=== PATIENT | female | born 1955 | race Caucasian/White ===

== ENCOUNTER 2017-05-10 12:07 | Inpatient (IN) | payer MEDICAID, OTHER ==
[~2017-05-10] VITALS: Ht 152.4 cm; Wt 48.6 kg
[2017-05-10] MEDS ORDERED: LORazepam 2 MG/ML VIAL IM ONE (13:00)
[2017-05-10 13:42] LABS: BASOPHILS % (AUTO) 0.6 % (0.0-2.0); EOSINOPHILS % (AUTO) 0.5 % (1.0-6.0); HEMOGLOBIN 12.9 g/dL (12.0-16.0); LYMPHOCYTES # (AUTO) 1.4 K/uL (1.0-4.8); LYMPHOCYTES % (AUTO) 19.6 % (22.0-44.0); MEAN CORPUSCULAR HEMOGLOBIN 30.6 pg (26.0-34.0); MEAN CORPUSCULAR VOLUME 88 fL (80-100); MONOCYTES # (AUTO) 0.4 K/uL (0.1-1.0); MONOCYTES % (AUTO) 5.4 % (2.0-9.0); NEUTROPHILS # (AUTO) 5.2 K/uL (1.8-7.7); NEUTROPHILS % (AUTO) 73.9 % (40.0-70.0); PLATELET COUNT (AUTO) 287 K/uL (150-450); RED BLOOD CELL COUNT(AUTO) 4.23 MIL/uL (4.00-5.20); RED CELL DISTRIBUTION WIDTH 13.3 % (11.5-14.5)
[2017-05-10 14:03] LABS: ANION GAP 12 mmol/L (8-16); CALCIUM, TOTAL 9.3 mg/dL (8.8-10.5); CARBON DIOXIDE 24 mmol/L (22-29); CHLORIDE 100 mmol/L (98-107); CREATININE 0.84 mg/dL (0.60-1.30); GLOMERULAR FILTR. RATE CALC > 60 mL/min (>60); GLUCOSE,RANDOM 145 mg/dL (70-110); POTASSIUM 3.8 mmol/L (3.5-5.1); SODIUM SERUM 136 mmol/L (136-145); UREA NITROGEN, BLOOD 18 mg/dL (7-18)
[2017-05-10 14:09] LABS: ALANINE AMINOTRANSFERASE 19 U/L (12-78); ALBUMIN 3.9 g/dL (3.4-5.0); ALKALINE PHOSPHATASE 215 U/L (46-116); ASPARTATE AMINOTRANSFERASE 25 U/L (15-37); BILIRUBIN,TOTAL 0.4 mg/dL (0.1-1.0); TOTAL PROTEIN, SERUM 9.4 g/dL (6.4-8.2)
[2017-05-10 14:27] LABS: APPEARANCE,URINE CLOUDY (CLEAR); BILIRUBIN,URINE NEGATIVE (NEGATIVE); GLUCOSE, URINE (UA) NEGATIVE (NEGATIVE); KETONES,URINE TRACE mg/dL (NEGATIVE); LEUKOCYTE ESTERASE ,URINE NEGATIVE (NEGATIVE); NITRATE,URINE NEGATIVE (NEGATIVE); OCCULT BLOOD,URINE NEGATIVE (NEGATIVE); PROTEIN,URINE POS 1+ (NEGATIVE); UROBILINOGEN,URINE 0.2 mg/dL (<=1.0)
[2017-05-10] MEDS ORDERED: SODIUM CHLORIDE 0.9% 1,000 ML IV ONE (14:30)
[2017-05-10] MEDS ORDERED: LORazepam 2 MG/ML VIAL IVP ONE (14:30)
[2017-05-10 14:47] LABS: RBC,URINE None Seen /HPF (0-2)
[2017-05-10 14:48] LABS: BACTERIA,URINE Few /HPF (None Seen); SQUAMOUS EPITHELIAL CELL,UR Moderate /LPF (None Seen); WBC,URINE 0-2 /HPF (0-5)
[2017-05-10 16:06] LABS: AMPHET/METH SCREEN,URINE NEGATIVE (NEGATIVE); BARBITURATE SCREEN, URINE NEGATIVE (NEGATIVE); BENZODIAZEPINES SCREEN,URINE POSITIVE (NEGATIVE); CANNABINOID SCREEN,URINE NEGATIVE (NEGATIVE); COCAINE SCREEN,URINE NEGATIVE (NEGATIVE); METHADONE SCREEN, URINE NEGATIVE (NEGATIVE); OPIATE SCREEN,URINE NEGATIVE (NEGATIVE); PHENCYCLIDINE SCREEN,URINE NEGATIVE (NEGATIVE)
[2017-05-10] MEDS ORDERED: LORazepam 1 MG TABLET PO PRN (18:45)
[2017-05-10] MEDS ORDERED: HALOPERIDOL 5 MG TABLET PO PRN (18:45)
[2017-05-10 19:09] LABS: CHOL/HDL RATIO 3.8 (3.9-5.7); CHOLESTEROL 214 mg/dL (131-200); HDL CHOLESTEROL 56 mg/dL (40-60); LDL CHOL (CALC.) 140 mg/dL (0-130); TRIGLYCERIDES 90 mg/dL (15-150)
[2017-05-10] MEDS ORDERED: ZOLPIDEM TARTRATE 10 MG TABLET PO PRN (19:15)
[2017-05-10 21:00] VITALS: BP 145/93
[2017-05-10 21:40] VITALS: BP 141/91
[2017-05-10] MEDS: LORazepam 2 MG TABLET PO PRN (23:46)
[2017-05-11] VITALS: BP 122/80
[2017-05-11] MEDS ORDERED: MAGNESIUM HYDROXIDE SUSPENSION 30 ML UDCUP PO PRN (08:15)
[2017-05-11] MEDS ORDERED: PETROLATUM,WHITE 71 GM JELLY TP PRN (08:15)
[2017-05-11] MEDS ORDERED: BENZOCAINE/MENTHOL LOZENGE [8 LOZENGES/PACKET] MM PRN (08:15)
[2017-05-11] MEDS ORDERED: ALBUTEROL SULFATE HFA 90 MCG/PUFF 8 GM INHALER IH PRN (08:15)
[2017-05-11] MEDS ORDERED: ONDANSETRON HCL 4 MG TABLET PO PRN (08:15)
[2017-05-11] MEDS ORDERED: MAG HYDROX/AL HYDROX/SIMETH ES 30 ML SUSPENSION UDCUP PO PRN (08:15)
[2017-05-11] MEDS ORDERED: LOPERAMIDE HCL 2 MG CAPSULE PO PRN (08:15)
[2017-05-11] MEDS ORDERED: ACETAMINOPHEN 325 MG TABLET PO PRN (08:15)
[2017-05-11] MEDS ORDERED: CloNIDine HCL 0.1 MG TABLET PO PRN (08:15)
[2017-05-11] MEDS ORDERED: BACITRACIN 28.4 GM OINTMENT TP PRN (08:15)
[2017-05-11] MEDS: OMEPRAZOLE 20 MG CAPSULE PO SCH (08:39)
[2017-05-11] MEDS: DOCUSATE SODIUM 100 MG CAPSULE PO SCH (08:39)
[2017-05-11 08:40] VITALS: BP 139/76
[2017-05-11] MEDS: IBUPROFEN 600 MG TABLET PO PRN (08:40)
[2017-05-11 08:51] VITALS: BP 139/76
[2017-05-11] MEDS: DULoxetine HCL 30 MG CAPSULE PO SCH (11:51)
[2017-05-11] MEDS: LORazepam 2 MG TABLET PO PRN (14:06)
[2017-05-11 20:22] VITALS: BP 124/72
[2017-05-11] MEDS: MIRTAZAPINE 15 MG TABLET PO SCH (20:56)
[2017-05-12] MEDS ORDERED: INFLUENZA VIRUS VACCINE QVS 2017-18 (3YR+)/PF 60 MCG/0.5 ML SYRINGE IM ONE (00:30)
[2017-05-12] MEDS: LORazepam 2 MG TABLET PO PRN ×2 (05:29→15:16)
[2017-05-12 07:05] VITALS: BP 131/78
[2017-05-12] MEDS: IBUPROFEN 600 MG TABLET PO PRN ×2 (07:08→17:21)
[2017-05-12 07:12] LABS: HEMOGLOBIN A1C 5.7 % (4.5-6.2)
[2017-05-12 07:21] LABS: THYROID STIMULATING HORMONE 3.42 uIU/mL (0.36-3.74)
[2017-05-12 08:15] VITALS: BP 136/89
[2017-05-12] MEDS: DULoxetine HCL 30 MG CAPSULE PO SCH (08:22)
[2017-05-12] MEDS: DOCUSATE SODIUM 100 MG CAPSULE PO SCH (08:22)
[2017-05-12] MEDS: OMEPRAZOLE 20 MG CAPSULE PO SCH (08:23)
[2017-05-12] MEDS: LISINOPRIL 10 MG TABLET PO SCH (08:29)
[2017-05-12] MEDS: NICOTINE 21 MG/24 HOUR PATCH TD SCH (08:29)
[2017-05-12 16:00] VITALS: BP 133/77
[2017-05-12] MEDS: MIRTAZAPINE 15 MG TABLET PO SCH (20:32)
[2017-05-13 06:30] VITALS: BP 127/77
[2017-05-13] MEDS: IBUPROFEN 600 MG TABLET PO PRN (06:39)
[2017-05-13 08:26] VITALS: BP 126/77
[2017-05-13] MEDS: DULoxetine HCL 30 MG CAPSULE PO SCH (09:14)
[2017-05-13] MEDS: LISINOPRIL 10 MG TABLET PO SCH (09:15)
[2017-05-13] MEDS: DOCUSATE SODIUM 100 MG CAPSULE PO SCH (09:16)
[2017-05-13] MEDS: OMEPRAZOLE 20 MG CAPSULE PO SCH (09:16)
[2017-05-13] MEDS: NICOTINE 21 MG/24 HOUR PATCH TD SCH (09:17)
[2017-05-13] MEDS ORDERED: DULO30CA2 PO (15:25)
[2017-05-13] MEDS ORDERED: MIRT15 PO (15:25)
[2017-05-13] MEDS ORDERED: DSS100 PO (16:10)
[2017-05-13] MEDS ORDERED: LISI-661 PO (16:11)
[2017-05-13] MEDS ORDERED: OMEP20 PO (16:14)
[2017-05-13 18:00] VITALS: BP 124/78
== END 2017-05-13 19:25 | disposition home or self-care (01) | DRG 751 ==
LOC: EMS 12:10 → EDBD 12:10 → 3EC 19:30
DX: F33.3 Major depressive disorder, recurrent, severe with psychotic symptoms (principal); Z78.1 Physical restraint status; I10 Essential (primary) hypertension; E78.5 Hyperlipidemia, unspecified; F17.200 Nicotine dependence, unspecified, uncomplicated; F41.9 Anxiety disorder, unspecified; G47.00 Insomnia, unspecified; G89.29 Other chronic pain; K21.9 Gastro-esophageal reflux disease without esophagitis; M45.9 Ankylosing spondylitis of unspecified sites in spine; M54.9 Dorsalgia, unspecified; Z88.2 Allergy status to sulfonamides; Z91.048 Other nonmedicinal substance allergy status; Z79.899 Other long term (current) drug therapy
CPT/HCPCS: 80074; 82306; 83036; 84443; 93005; 96361; 96372; 96374; 99285; G0480; J2060; J7030

== ENCOUNTER 2019-01-16 13:41 | Emergency (ER) | payer MEDICAID, OTHER ==
[~2019-01-16] VITALS: Ht 162.6 cm; Wt 54.5 kg
[~2019-01-16 13:41] MED LIST: COMP10 PO; DSS100 PO; DULO30CA2 PO; LISI-661 PO; MIRT15 PO; OMEP20 PO
[2019-01-16] MEDS ORDERED: ONDANSETRON HCL 4 MG/2 ML VIAL IVP ONE (14:30)
[2019-01-16] MEDS ORDERED: SODIUM CHLORIDE 0.9% 1,000 ML IV ONE (14:30)
[2019-01-16 14:51] LABS: BASOPHILS % (AUTO) 0.7 % (0.0-2.0); EOSINOPHILS % (AUTO) 1.4 % (1.0-6.0); HEMATOCRIT 43.5 % (36-46); HEMOGLOBIN 14.6 g/dL (12.0-16.0); LYMPHOCYTES # (AUTO) 2.4 K/uL (1.0-4.8); LYMPHOCYTES % (AUTO) 28.7 % (22.0-44.0); MEAN CORPUSCULAR HEMOGLOBIN 29.1 pg (26.0-34.0); MEAN CORPUSCULAR HGB CONC 33.7 G/dL (31.0-37.0); MEAN CORPUSCULAR VOLUME 86 fL (80-100); MONOCYTES # (AUTO) 0.4 K/uL (0.1-1.0); MONOCYTES % (AUTO) 4.7 % (2.0-9.0); NEUTROPHILS # (AUTO) 5.4 K/uL (1.8-7.7); NEUTROPHILS % (AUTO) 64.5 % (40.0-70.0); PLATELET COUNT (AUTO) 280 K/uL (150-450); RED BLOOD CELL COUNT(AUTO) 5.03 MIL/uL (4.00-5.20); RED CELL DISTRIBUTION WIDTH 13.9 % (11.5-14.5)
[2019-01-16 15:25] LABS: ANION GAP 6 mmol/L (8-16); CALCIUM, TOTAL 9.3 mg/dL (8.8-10.5); CARBON DIOXIDE 30 mmol/L (22-29); CHLORIDE 99 mmol/L (98-107); CREATININE 0.57 mg/dL (0.60-1.30); GLOMERULAR FILTR. RATE CALC > 60 mL/min (>60); GLUCOSE,RANDOM 126 mg/dL (70-110); POTASSIUM 3.9 mmol/L (3.5-5.1); SODIUM SERUM 135 mmol/L (136-145); UREA NITROGEN, BLOOD 9 mg/dL (7-18)
[2019-01-16 15:30] LABS: ALANINE AMINOTRANSFERASE 25 U/L (12-78); ALBUMIN 3.7 g/dL (3.4-5.0); ALKALINE PHOSPHATASE 184 U/L (46-116); ASPARTATE AMINOTRANSFERASE 24 U/L (15-37); BILIRUBIN,TOTAL 0.6 mg/dL (0.1-1.0); LIPASE 54 U/L (73-393); TOTAL PROTEIN, SERUM 9.1 g/dL (6.4-8.2)
[2019-01-16 16:39] LABS: APPEARANCE,URINE CLEAR (CLEAR); BILIRUBIN,URINE NEGATIVE (NEGATIVE); GLUCOSE, URINE (UA) NEGATIVE (NEGATIVE); KETONES,URINE TRACE mg/dL (NEGATIVE); LEUKOCYTE ESTERASE ,URINE MODERATE (NEGATIVE); NITRATE,URINE NEGATIVE (NEGATIVE); OCCULT BLOOD,URINE NEGATIVE (NEGATIVE); PH,URINE 7.5 (5.0-8.0); PROTEIN,URINE NEGATIVE (NEGATIVE); UROBILINOGEN,URINE 0.2 mg/dL (<=1.0)
[2019-01-16 16:51] LABS: BACTERIA,URINE Few /HPF (None Seen); RBC,URINE 0-2 /HPF (0-2); SQUAMOUS EPITHELIAL CELL,UR Few /LPF (None Seen); WBC,URINE 26-50 /HPF (0-5)
[2019-01-16] MEDS ORDERED: METOCLOPRAMIDE HCL 5 MG/ML 2 ML VIAL IVP ONE (17:15)
[2019-01-16] MEDS ORDERED: DOCU-275 PO (17:21)
[2019-01-16 18:25] VITALS: BP 161/91
== END 2019-01-16 18:40 | disposition home or self-care (01) ==
LOC: EMS 13:41
DX: N39.0 Urinary tract infection, site not specified (principal); R11.2 Nausea with vomiting, unspecified; I10 Essential (primary) hypertension; F20.9 Schizophrenia, unspecified; F17.200 Nicotine dependence, unspecified, uncomplicated; Z88.1 Allergy status to other antibiotic agents; Z91.018 Allergy to other foods; Z79.899 Other long term (current) drug therapy
CPT/HCPCS: 36415; 80053; 81001; 83690; 85025; 87086; 93005; 96361; 96374; 96375; 99285; J2405; J2765; J7030

== ENCOUNTER 2019-01-21 10:52 | Inpatient (IN) | payer OTHER ==
[~2019-01-21] VITALS: Ht 162.6 cm; Wt 54.5 kg
[2019-01-21] MEDS: BARIUM SULFATE 0.1% SUSPENSION 450 ML BOTTLE PO ONE ×2 (02:42→14:42)
[~2019-01-21 10:52] MED LIST changes: +DOCU-275 PO; -DSS100 PO
[2019-01-21] MEDS ORDERED: METO-558 PO (11:04)
[2019-01-21] MEDS ORDERED: LEVO100 PO (11:04)
[2019-01-21] MEDS ORDERED: MORPHINE SULFATE 2 MG/ML SYRINGE IVP ONE (12:00)
[2019-01-21] MEDS ORDERED: ONDANSETRON HCL 4 MG/2 ML VIAL IVP ONE (12:00)
[2019-01-21] MEDS ORDERED: SODIUM CHLORIDE 0.9% 1,000 ML IV ONE ×3 (12:00→18:00)
[2019-01-21] MEDS ORDERED: IOVERSOL 350 MG/ML 100 ML VIAL ONE (13:05)
[2019-01-21] MEDS ORDERED: SODIUM CHLORIDE 0.9% 100 ML ONE (13:05)
[2019-01-21 13:36] LABS: BASOPHILS % (AUTO) 0.7 % (0.0-2.0); EOSINOPHILS % (AUTO) 1.6 % (1.0-6.0); HEMATOCRIT 44.6 % (36-46); HEMOGLOBIN 14.9 g/dL (12.0-16.0); LYMPHOCYTES # (AUTO) 4.1 K/uL (1.0-4.8); LYMPHOCYTES % (AUTO) 37.5 % (22.0-44.0); MEAN CORPUSCULAR HEMOGLOBIN 29.2 pg (26.0-34.0); MEAN CORPUSCULAR HGB CONC 33.3 G/dL (31.0-37.0); MEAN CORPUSCULAR VOLUME 88 fL (80-100); MONOCYTES # (AUTO) 0.7 K/uL (0.1-1.0); NEUTROPHILS # (AUTO) 5.9 K/uL (1.8-7.7); NEUTROPHILS % (AUTO) 54.2 % (40.0-70.0); PLATELET COUNT (AUTO) 277 K/uL (150-450); RED BLOOD CELL COUNT(AUTO) 5.09 MIL/uL (4.00-5.20); RED CELL DISTRIBUTION WIDTH 13.7 % (11.5-14.5)
[2019-01-21 13:51] LABS: ANION GAP 6 mmol/L (8-16); CALCIUM, TOTAL 9.4 mg/dL (8.8-10.5); CARBON DIOXIDE 28 mmol/L (22-29); CHLORIDE 99 mmol/L (98-107); CREATININE 0.62 mg/dL (0.60-1.30); GLOMERULAR FILTR. RATE CALC > 60 mL/min (>60); GLUCOSE,RANDOM 102 mg/dL (70-110); POTASSIUM 4.1 mmol/L (3.5-5.1); SODIUM SERUM 133 mmol/L (136-145); UREA NITROGEN, BLOOD 7 mg/dL (7-18)
[2019-01-21 13:56] LABS: ALANINE AMINOTRANSFERASE 25 U/L (12-78); ALBUMIN 3.9 g/dL (3.4-5.0); ALKALINE PHOSPHATASE 189 U/L (46-116); ASPARTATE AMINOTRANSFERASE 32 U/L (15-37); BILIRUBIN,TOTAL 0.4 mg/dL (0.1-1.0); LIPASE 73 U/L (73-393); TOTAL PROTEIN, SERUM 8.8 g/dL (6.4-8.2)
[2019-01-21] MEDS ORDERED: METOCLOPRAMIDE HCL 5 MG/ML 2 ML VIAL IVP ONE (15:00)
[2019-01-21] MEDS ORDERED: ONDANSETRON HCL 4 MG/2 ML VIAL IVP PRN (17:00)
[2019-01-21] MEDS ORDERED: ACETAMINOPHEN 325 MG TABLET PO PRN ×2 (17:00→18:00)
[2019-01-21] MEDS ORDERED: MAGNESIUM HYDROXIDE SUSPENSION 30 ML UDCUP PO PRN (18:00)
[2019-01-21 18:16] LABS: THYROID STIMULATING HORMONE 0.16 uIU/mL (0.36-3.74)
[2019-01-21 18:26] VITALS: BP 146/91
[2019-01-21 19:50] VITALS: BP 116/72
[2019-01-21] MEDS: DOCUSATE SODIUM 100 MG CAPSULE PO SCH (20:30)
[2019-01-22 00:29] VITALS: BP 153/91
[2019-01-22] MEDS: ONDANSETRON HCL 4 MG/2 ML VIAL IVP PRN ×3 (03:51→14:32)
[2019-01-22 04:32] VITALS: BP 147/88
[2019-01-22 07:56] VITALS: BP 172/81
[2019-01-22] MEDS ORDERED: DULoxetine HCL 30 MG CAPSULE PO SCH (09:00)
[2019-01-22] MEDS: PANTOPRAZOLE SODIUM 40 MG/VIAL IVP SCH (09:48)
[2019-01-22] MEDS: LISINOPRIL 10 MG TABLET PO SCH (09:48)
[2019-01-22] MEDS: DOCUSATE SODIUM 100 MG CAPSULE PO SCH ×2 (09:48→20:38)
[2019-01-22] MEDS: METOPROLOL SUCCINATE 50 MG ER TABLET PO SCH (09:49)
[2019-01-22] MEDS: NICOTINE 21 MG/24 HOUR PATCH TD SCH (09:49)
[2019-01-22 15:46] VITALS: BP 122/74
[2019-01-22 16:14] LABS: AMPHET/METH SCREEN,URINE NEGATIVE (NEGATIVE); BARBITURATE SCREEN, URINE NEGATIVE (NEGATIVE); BENZODIAZEPINES SCREEN,URINE NEGATIVE (NEGATIVE); CANNABINOID SCREEN,URINE NEGATIVE (NEGATIVE); COCAINE SCREEN,URINE NEGATIVE (NEGATIVE); METHADONE SCREEN, URINE NEGATIVE (NEGATIVE); OPIATE SCREEN,URINE NEGATIVE (NEGATIVE); PHENCYCLIDINE SCREEN,URINE NEGATIVE (NEGATIVE)
[2019-01-22 20:22] VITALS: BP 132/74
[2019-01-22] MEDS: GABAPENTIN 300 MG CAPSULE PO SCH (20:38)
[2019-01-22] MEDS ORDERED: MIRTAZAPINE 15 MG TABLET PO SCH (21:00)
[2019-01-22 23:53] VITALS: BP 118/56
[2019-01-23] MEDS: ONDANSETRON HCL 4 MG/2 ML VIAL IVP PRN ×2 (05:35→10:40)
[2019-01-23 05:46] VITALS: BP 143/83
[2019-01-23 07:54] VITALS: BP 147/73
[2019-01-23] MEDS ORDERED: DULoxetine HCL 60 MG CAPSULE PO SCH (09:00)
[2019-01-23] MEDS: PANTOPRAZOLE SODIUM 40 MG/VIAL IVP SCH (09:05)
[2019-01-23] MEDS: METOPROLOL SUCCINATE 50 MG ER TABLET PO SCH (09:06)
[2019-01-23] MEDS: LISINOPRIL 10 MG TABLET PO SCH (09:06)
[2019-01-23] MEDS: DOCUSATE SODIUM 100 MG CAPSULE PO SCH (09:06)
[2019-01-23] MEDS: GABAPENTIN 300 MG CAPSULE PO SCH ×2 (09:06→13:34)
[2019-01-23] MEDS: NICOTINE 21 MG/24 HOUR PATCH TD SCH (09:07)
[2019-01-23 11:41] VITALS: BP 105/73
== END 2019-01-23 14:00 | disposition home or self-care (01) | DRG 249 ==
LOC: EMS 10:54 → 6N 18:07 → 5S 18:07
PROVIDERS: ADMIT Internal Medicine; ATTEND Internal Medicine
DX: R11.2 Nausea with vomiting, unspecified (principal); F33.2 Major depressive disorder, recurrent severe without psychotic features; F20.9 Schizophrenia, unspecified; E03.9 Hypothyroidism, unspecified; J44.9 Chronic obstructive pulmonary disease, unspecified; E05.90 Thyrotoxicosis, unspecified without thyrotoxic crisis or storm; F17.210 Nicotine dependence, cigarettes, uncomplicated; M54.9 Dorsalgia, unspecified; I10 Essential (primary) hypertension; G89.29 Other chronic pain; Z79.899 Other long term (current) drug therapy; Z91.19 Patient's noncompliance with other medical treatment and regimen; Z88.2 Allergy status to sulfonamides; Z91.018 Allergy to other foods
CPT/HCPCS: 74177; 84443; 93005; 96374; 96375; C9113; J2270; J2405; J2765; J7030; J7050